=== PATIENT | female | born 1940 | race Caucasian/White ===

== ENCOUNTER 2020-03-04 10:37 | Outpatient (CLI) | payer MEDICARE, SELFPAY ==
[2020-03-04 11:45] LABS: Alanine Aminotransferase 22 U/L (4-35); Albumin Level 3.7 g/dL (3.5-5.1); Alkaline Phosphatase 104 U/L (38-126); Anion Gap 5 mmol/L (8-16); Aspartate Amino Transferase 48 U/L (14-36); Bilirubin,Total 0.5 mg/dL (0.2-1.3); Blood Urea Nitrogen 18 mg/dL (7-17); Calcium 8.5 mg/dL (8.4-10.2); Carbon Dioxide 38 mmol/L (22-30); Chloride 95 mmol/L (98-107); Estimated Glomerular Filt Rate > 60; Glucose 107 mg/dL (65-105); Potassium 3.6 mmol/L (3.4-5.0); Sodium 138 mmol/L (137-145)
== END 2020-03-04 10:38 | disposition home or self-care (01) ==
PROVIDERS: PCP Internal Medicine; Visit Provider Internal Medicine
DX: I48.91 Unspecified atrial fibrillation (principal); Z79.899 Other long term (current) drug therapy
CPT/HCPCS: 36415; 80053

== ENCOUNTER 2020-07-07 12:41 | Outpatient (CLI) | payer MEDICARE, SELFPAY ==
[2020-07-07 13:35] LABS: Add Urine Microscopic? YES; Appearance Urine Cloudy (Clear); Bilirubin Urine Negative (Negative); Blood Urine Negative (Negative); Color Urine Amber (Yellow); Glucose Urine UA Negative (Negative); Hyaline Casts Urine 50+ /lpf; Ketones Urine Negative (Negative); Leukocyte Esterase Ur Negative LEU/UL (Negative); Mucus Urine Heavy /lpf; Nitrate Urine Negative (Negative); Protein Urine 2+ mg/dL (Negative); RBC Urine 0-2 /hpf (0-2); Specific Grav Ur 1.017 (1.001-1.035); Squamous Epithelial Cell Urine Moderate /hpf (Few)
== END 2020-07-07 12:42 | disposition home or self-care (01) ==
PROVIDERS: PCP Internal Medicine; Visit Provider Nurse Practitioner
DX: R10.9 Unspecified abdominal pain (principal)
CPT/HCPCS: 81001

== ENCOUNTER 2020-07-13 12:58 | Outpatient (CLI) | payer MEDICARE, SELFPAY ==
--- NOTE | ~2020-07-13 | CT_ITS ---
EXAMINATION: CT chest wo con DATE: 07/13/2020 13:37 INDICATION: Thoracic aneurysm. TECHNIQUE: Computed tomography (CT) of the chest was performed without intravenous contrast. The dose -length product was 126.65 mGy-cm. Automated exposure control and iterative reconstruction technique were employed. COMPARISON: CT dated 02/17/2019 FINDINGS: There is global enlargement of the heart. There is atherosclerosis. Small right pleural eff usion. Small pericardial effusion. There is enlargement of the pulmonary arteries consistent with pul monary hypertension. No significant change to 4.3 cm ascending thoracic aortic aneurysm. Calcified gr anulomas right middle lobe. Calcified granuloma left lower lobe. No endobronchial lesions. Mild emphy sema. Chronic apical pleural thickening/scarring. No pneumothorax. No acute focal pneumonia. There ar e chronic compression fractures of T6 and L1. There has been interval development of age-indeterminat e compression fractures at T5, T11 and T12. There are multiple nonobstructing left renal stones. IMPRESSION: 1. Stable ascending thoracic aortic aneurysm measuring 4.3 cm. 2: Cardiomegaly with small pericardial effusion. 3: Chronic small right pleural effusion. 4: Pulmonary arterial hypertension. 5: Chronic compression fractures of T6 and L1. New fractures at T5, T11 and T12 since 02/17/2019, age indeterminate. Reviewed, dictated and finalized at location A. RIAL ASSISTANT IMPRESSION: 1. Stable ascending thoracic aortic aneurysm measuring 4.3 cm. 2: Cardiomegaly with small pericardial effusion. 3: Chronic small right pleural effusion. 4: Pulmonary arterial hypertension. 5: Chronic compression fractures of T6 and L1. New fractures at T5, T11 and T1 2 since 02/17/2019, age indeterminate.
== END 2020-07-13 12:59 | disposition home or self-care (01) ==
PROVIDERS: PCP Internal Medicine; Visit Provider Nurse Practitioner
DX: R91.8 Other nonspecific abnormal finding of lung field (principal); I71.4 Abdominal aortic aneurysm, without rupture; I51.7 Cardiomegaly
CPT/HCPCS: 71250

== ENCOUNTER 2020-09-18 11:12 | Outpatient (CLI) | payer MEDICARE, SELFPAY ==
--- NOTE | ~2020-09-18 | XR_ITS ---
XR abdomen/kub 1V DATE: 09/18/2020 11:35 INDICATION: Abdominal pain TECHNIQUE: AP projection, 2 views COMPARISON: 02/17/[address] abdomen pelvis FINDINGS: Low-lying right kidney. Numerous bilateral renal calcified calculi. There is a prominent amount of fecal material in the rectum and colon. No bowel obstruction is eviden t. Hepatomegaly is suggested. The psoas shadows are intact. Diffuse osteopenia. Status post vertebroplasty at L1 fracture. IMPRESSION: Extensive bilateral nephrolithiasis; low-lying right kidney Vertebroplasty and chronic burst fracture at T12 Diffuse osteopenia Reviewed, dictated and finalized at [facility]. Reviewed, dictated and finalized at location A. RY FINISHER
[2020-09-18 12:24] LABS: Add Urine Microscopic? YES; Appearance Urine Clear (Clear); Bilirubin Urine Negative (Negative); Blood Urine Negative (Negative); Color Urine Yellow (Yellow); Glucose Urine UA Negative (Negative); Hyaline Casts Urine 30-49 /lpf; Ketones Urine Negative (Negative); Leukocyte Esterase Ur Negative LEU/UL (Negative); Mucus Urine Rare /lpf; Nitrate Urine Negative (Negative); Protein Urine 1+ mg/dL (Negative); RBC Urine 0-2 /hpf (0-2); Specific Grav Ur 1.012 (1.001-1.035); Squamous Epithelial Cell Urine Rare /hpf (Few); WBC Urine 0-3 /hpf
== END 2020-09-18 11:13 | disposition home or self-care (01) ==
LOC: ANHIMG 11:19
PROVIDERS: PCP Internal Medicine; Visit Provider Internal Medicine
DX: R10.9 Unspecified abdominal pain (principal); N20.0 Calculus of kidney; M85.88 Other specified disorders of bone density and structure, other site
CPT/HCPCS: 74018; 81001

== ENCOUNTER 2020-09-24 16:36 | Emergency (ER) | payer MEDICARE, SELFPAY ==
--- NOTE | ~2020-09-24 | XR_ITS ---
EXAMINATION: XR hip RT 2V w AP pelvis EXAM DATE: 09/24/2020 17:02 INDICATION: Initial encounter following injury, with pain of the right hip. TECHNIQUE: Right hip frontal, 'frog leg' projections for interpretation. Frontal projection pelvis. Comparison is made to prior examination from 01/27/2009. FINDINGS: Smooth right hip femoral head contour, no radiographic evidence of avascular necrosis. Th ere is hips bilaterally primary osteoarthritis. Large amount of bowel gas obscuring the sacrum. Ther e are no acute pelvic or right hip fractures or dislocations identified. There is no subcutaneous ga s. The soft tissue is unremarkable. There are no radiopaque foreign bodies. IMPRESSION: No acute osseous findings. Reviewed, dictated and finalized at location A. ER HARDWARE WORKER IMPRESSION: No acute osseous findings.
[2020-09-24 16:39] VITALS: BP 139/83; PULSE 108; RESP 17; TEMP 36.6; O2SAT 98
--- NOTE | 2020-09-24 16:58 | ED.LOWEXIN ---
HPI - Extremity Injury (Lower) General Chief Complaint: Extremity Injury, Lower Stated Complaint: fall - right hip pain Time Seen by Provider: 09/24/20 16:36 History of Present Illness HPI Narrative: Patient is an 80-year-old female who presents ER with right hip pain. Reports she is back on a stool when it went out from under her and slipped backwards striking her on the leg and then she struck her bottom on the ground. She did not strike her head or lose consciousness. She has been ambulatory. No numbness or tingling to the leg. She does not take any blood thinners. Related Data Home Medications Medication Instructions Recorded Confirmed albuterol sulfate 90 mcg/actuation 1 puff INHALATION Q4H PRN 06/26/19 09/18/20 aerosol inhaler fluticasone furoate 100 1 inhalation INHALATION Q24H 06/26/19 09/18/20 mcg-vilanterol 25 mcg/dose inhalation powder fluticasone propionate 50 2 spray NASAL DAILY 06/26/19 09/18/20 mcg/actuation nasal spray,suspension acetaminophen 500 mg capsule 1,000 mg PO Q6H PRN cap 08/20/19 09/18/20 lutein 6 mg capsule 6 mg PO DAILY 08/20/19 09/18/20 Allergies Allergy/AdvReac Type Severity Reaction Status Date / Time No Known Allergies Allergy Verified 09/24/20 16:43 Review of Systems Musculoskeletal: Musculoskeletal: Denies back pain, Reports arthralgias, Denies joint swelling and Denies muscle cramps Neurologic: Denies syncope, Denies headache(s), Denies focal weakness and Denies numbness [facility] Past Medical History Medical History (Updated 09/24/20 @ 18:11 by Rajendra Spivey MD) Abnormal chest xray Ascending aortic aneurysm Atrial fibrillation Carotid artery disease Chronic obstructive pulmonary disease, unspecified Hx of multiple myeloma Hx of temporal arteritis Intraparenchymal hemorrhage of brain Kidney stones Memory loss Polymyalgia rheumatica 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 HEAD: Normocephalic, atraumatic. CHEST: Clear to auscultation. No respiratory distress. HEART: Regular rate and rhythm. Normal peripheral pulses. ABDOMEN: Soft, nontender, nondistended. EXTREMITIES: Exam of the lower extremities reveals full range of motion with normal strength in the hips. Patient able ambulate without issue. No visual evidence of trauma and occluding abrasion or contusions to the right lower extremity. SKIN: Warm, dry, no rash. NEURO: Alert and oriented x3. PSYCH: Normal mood and affect. Course Course Emergency Course: Patient informed of results.-Ambulatory. Discharge home. Vital Signs Vital signs: Vital Signs Temperature 97.8 F 09/24/20 16:39 Pulse Rate 108 H 09/24/20 16:39 Respiratory Rate 17 09/24/20 16:39 Blood Pressure 139/83 09/24/20 16:39 Pulse Oximetry 98 09/24/20 16:39 Temperature 97.8 F 09/24/20 16:39 Pulse Rate 108 H 09/24/20 16:39 Respiratory Rate 17 09/24/20 16:39 Blood Pressure 139/83 09/24/20 16:39 Pulse Oximetry 98 09/24/20 16:39 MDM - Extremity Injury (Lower) Imaging Data Radiologist's impression: ITS Impressions Hip/Pelvis X-Ray 09/24/20 17:02 IMPRESSION: No acute osseous findings. Discharge Plan Discharge Clinical Impression: Acute hip pain Patient Disposition: Home, Self-Care Condition: Stable Instructions: Hip Pain (ED) Addit
[2020-09-24] MEDS: ACETAMINOPHEN 325 MG TABLET 650 MG PO (17:09)
[2020-09-24 19:21] VITALS: BP 124/89; PULSE 98; RESP 18; O2SAT 99
== END 2020-09-24 19:22 | disposition home or self-care (01) ==
PROVIDERS: Emergency Provider Emergency Medicine; PCP Internal Medicine
DX: M25.551 Pain in right hip (principal); I48.91 Unspecified atrial fibrillation; I25.10 Atherosclerotic heart disease of native coronary artery without angina pectoris; J44.9 Chronic obstructive pulmonary disease, unspecified; Z87.442 Personal history of urinary calculi; M35.3 Polymyalgia rheumatica; Z85.79 Personal history of other malignant neoplasms of lymphoid, hematopoietic and related tissues; I71.4 Abdominal aortic aneurysm, without rupture
CPT/HCPCS: 73502; 99283; A9270

== ENCOUNTER 2021-01-22 09:28 | Outpatient (CLI) | payer MEDICARE, SELFPAY ==
[2021-01-22 10:26] LABS: Alanine Aminotransferase 20 U/L (4-35); Albumin Level 4.1 g/dL (3.5-5.1); Alkaline Phosphatase 166 U/L (38-126); Anion Gap 11 mmol/L (8-16); Aspartate Amino Transferase 42 U/L (14-36); Bilirubin,Total 0.9 mg/dL (0.2-1.3); Blood Urea Nitrogen 25 mg/dL (7-17); Calcium 9.1 mg/dL (8.4-10.2); Carbon Dioxide 28 mmol/L (22-30); Chloride 97 mmol/L (98-107); Estimated Glomerular Filt Rate 60; Glucose 155 mg/dL (65-105); Potassium 3.5 mmol/L (3.4-5.0); Sodium 136 mmol/L (137-145)
[2021-01-22 10:33] LABS: Prealbumin 15.1 mg/dL (17.6-36.0)
== END 2021-01-22 09:29 | disposition home or self-care (01) ==
PROVIDERS: PCP Internal Medicine; Visit Provider Internal Medicine
DX: R63.6 Underweight (principal); Z79.899 Other long term (current) drug therapy
CPT/HCPCS: 36415; 80053; 84134

== ENCOUNTER 2021-01-26 13:45 | Outpatient (CLI) | payer MEDICARE, SELFPAY ==
[2021-01-26 14:18] LABS: Add Urine Microscopic? YES; Appearance Urine Cloudy (Clear); Bacteria Urine Trace /hpf; Bilirubin Urine Negative (Negative); Blood Urine Negative (Negative); Color Urine Yellow (Yellow); Glucose Urine UA Negative (Negative); Hyaline Casts Urine 50+ /lpf; Ketones Urine Negative (Negative); Leukocyte Esterase Ur Negative LEU/UL (Negative); Mucus Urine Rare /lpf; Nitrate Urine Negative (Negative); Protein Urine 2+ mg/dL (Negative); RBC Urine 0-2 /hpf (0-2); Specific Grav Ur 1.014 (1.001-1.035); Squamous Epithelial Cell Urine Few /hpf (Few); Urobilinogen Urine Negative mg/dL (<2.0)
== END 2021-01-26 13:46 | disposition home or self-care (01) ==
PROVIDERS: PCP Internal Medicine; Visit Provider Nurse Practitioner
DX: R41.0 Disorientation, unspecified (principal)
CPT/HCPCS: 81001

== ENCOUNTER 2021-04-09 15:03 | Outpatient (CLI) | payer MEDICARE, SELFPAY ==
[2021-04-09 15:37] LABS: Anion Gap 4 mmol/L (8-16); Blood Urea Nitrogen 30 mg/dL (7-17); Calcium 9.1 mg/dL (8.4-10.2); Carbon Dioxide 32 mmol/L (22-30); Chloride 101 mmol/L (98-107); Estimated Glomerular Filt Rate > 60; Glucose 123 mg/dL (65-110); Potassium 4.5 mmol/L (3.4-5.0); Sodium 137 mmol/L (137-145)
== END 2021-04-09 15:04 | disposition home or self-care (01) ==
PROVIDERS: PCP Internal Medicine; Visit Provider Nurse Practitioner
DX: E87.6 Hypokalemia (principal)
CPT/HCPCS: 36415; 80048

== ENCOUNTER 2021-05-19 11:28 | Emergency (ER) | payer MEDICARE, SELFPAY ==
[2021-05-19 11:47] VITALS: BP 109/72; PULSE 68; RESP 15; TEMP 36.2; O2SAT 99
[2021-05-19 12:42] VITALS: BP 109/72; PULSE 96; RESP 16; TEMP 36.2; O2SAT 98
--- NOTE | 2021-05-19 12:58 | ED.EXTPRO ---
HPI - Extremity Problem General Chief complaint: Extremity Problem,Nontraumatic Stated complaint: foot swelling Time Seen by Provider: 05/19/21 12:38 Source: patient and family Mode of arrival: ambulatory Limitations: no limitations History of Present Illness HPI Narrative: Patient is an 81-year-old female complaining of bilateral lower extremity edema that started 2 days ago. states that patient stopped taking her water pill 3 days ago. Ask why she stopped it, replied she has dementia . Patient denies any chest pain, shortness of breath, abdominal distention, fever or chills. Related Data Home Medications Medication Instructions Recorded Confirmed acetaminophen 500 mg capsule 1,000 mg PO Q6H PRN cap 08/20/19 01/26/21 lutein 6 mg capsule 6 mg PO DAILY 08/20/19 01/26/21 Allergies Allergy/AdvReac Type Severity Reaction Status Date / Time No Known Allergies Allergy Verified 05/19/21 12:44 Review of Systems Review of Systems: All systems reviewed & are unremarkable except as noted in HPI and below Constitutional: Constitutional: Denies body ache(s), Denies chills, Denies excessive sweating, Denies fatigue, Denies fever(s), Denies headache(s), Denies lethargy, Denies malaise, Denies weakness and Denies weight loss Eyes: Eyes: Denies blurry vision, Denies change in vision and Denies loss of vision ENT: Denies dizziness, Denies ear discharge, Denies headache(s), Denies lip swelling, Denies epistaxis, Denies nasal congestion, Denies neck pain, Denies throat swelling and Denies tongue swelling Cardiovascular: Cardiovascular: Denies chest pain, Denies chest pain at rest, Denies chest pain with activity, Denies diaphoresis, Denies rapid heart rate, Denies irregular heart rhythm, Denies lightheadedness, Denies palpitations, Denies dyspnea and Denies dyspnea on exertion Respiratory: Respiratory: Denies chest congestion, Denies cough, Denies hemoptysis, Denies dyspnea and Denies dyspnea on exertion Gastrointestinal: Gastrointestinal: Denies abdominal pain, Denies melena, Denies hematochezia, Denies diarrhea, Denies nausea, Denies vomiting and Denies hematemesis Musculoskeletal: Musculoskeletal: Denies abnormal gait, Denies deformity, Denies joint swelling, Denies limited range of motion, Denies neck pain and Denies numbness Neurologic: Denies Abnormal speech present, Denies abnormal gait, Denies confusion, Denies dizziness, Denies headache(s), Denies focal weakness, Denies loss of vision, Denies numbness, Denies Other visual disturbances, Denies Sensory deficit (Neuro) and Denies weakness Psychiatric: Psychiatric: Denies confusion, Denies depression, Denies auditory hallucinations, Denies homicidal ideation and Denies suicidal ideation Endocrine: Endocrine: Denies cold intolerance, Denies excessive sweating, Denies fatigue, Denies heat intolerance and Denies palpitations Hematologic/Lymphatic: Hematologic/Lymphatic: Denies easy bleeding and Denies easy bruising Allergic/Immunologic: Allergic/Immunologic: Denies lip swelling, Denies throat swelling and Denies tongue swelling PMFSH Past Medical History Medical History Abnormal chest xray Ascending aortic aneurysm Atrial fibrillation Carotid artery disease Chronic obstructive pulmonary disease, unspecified Hx of multiple myeloma Hx of temporal arteritis Intraparenchymal hemorrhage of brain Kidney stones Memory loss Polymyalgia rheumatica 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
[2021-05-19 13:09] LABS: Basophils Percent Auto 0.4 % (0.2-1.2); Eosinophils Percent Auto 0.8 % (0-4.4); Hematocrit 35.7 % (37.0-47.0); Hemoglobin 11.5 g/dL (12.0-15.0); Immature Granulocyte Absolute 0.01 K/mm3 (0.00-0.031); Immature Granulocyte Percent A 0.2 % (0-0.5); Lymphocytes Absolute Auto 0.69 K/mm3 (0.9-3.2); Lymphocytes Percent Auto 13.5 % (18.3-44.2); Mean Corpuscular HGB Conc 32.2 g/dl (32-36); Mean Corpuscular Hemoglobin 32.2 pg (26-34); Mean Platelet Volume 9.4 fl (7.4-10.4); Monocytes Absolute Auto 0.5 K/mm3 (0.1-0.6); Monocytes Percent Auto 8.8 % (2.6-8.5); Neutrophils Absolute Auto 3.9 K/mm3 (1.3-6.7); Neutrophils Percent Auto 76.3 % (45.5-73.1); Platelet Count Result 208 k/mm3 (150-375); Red Blood Count 3.57 M/mm3 (4.2-5.4); Red Cell Distribution Width 14.7 % (11.5-14.5); White Blood Count 5.1 K/mm3 (4.5-10.0)
[2021-05-19 13:19] LABS: Anion Gap 3 mmol/L (8-16); Blood Urea Nitrogen 19 mg/dL (7-17); Calcium 8.8 mg/dL (8.4-10.2); Carbon Dioxide 37 mmol/L (22-30); Chloride 99 mmol/L (98-107); Estimated CRCL calculation 31 ml/min; Estimated Glomerular Filt Rate > 60; Glucose 137 mg/dL (65-110); Sodium 139 mmol/L (137-145)
[2021-05-19 13:28] LABS: NT Pro B Type Natriuretic Pept 1730 pg/mL (5-100)
[2021-05-19] MEDS: FUROSEMIDE INJ 40 MG/4 ML VIAL 20 MG IV PUSH (13:31)
[2021-05-19 14:55] VITALS: BP 113/85; PULSE 92; RESP 18; O2SAT 98
== END 2021-05-19 14:56 | disposition home or self-care (01) ==
PROVIDERS: Emergency Provider Emergency Medicine; PCP Internal Medicine
DX: R60.0 Localized edema (principal); I48.91 Unspecified atrial fibrillation; I25.10 Atherosclerotic heart disease of native coronary artery without angina pectoris; J44.9 Chronic obstructive pulmonary disease, unspecified; Z85.79 Personal history of other malignant neoplasms of lymphoid, hematopoietic and related tissues; Z87.442 Personal history of urinary calculi; M35.3 Polymyalgia rheumatica; Z87.891 Personal history of nicotine dependence
CPT/HCPCS: 36415; 80048; 83880; 85025; 96374; 99284; J1940

== ENCOUNTER 2021-06-03 15:32 | Outpatient (CLI) | payer MEDICARE, SELFPAY ==
[2021-06-03 15:59] LABS: Anion Gap 6 mmol/L (8-16); Blood Urea Nitrogen 22 mg/dL (7-17); Calcium 8.9 mg/dL (8.4-10.2); Carbon Dioxide 37 mmol/L (22-30); Chloride 97 mmol/L (98-107); Estimated Glomerular Filt Rate 53; Glucose 95 mg/dL (65-110); Potassium 3.2 mmol/L (3.4-5.0); Sodium 140 mmol/L (137-145)
== END 2021-06-03 15:33 | disposition home or self-care (01) ==
PROVIDERS: PCP Internal Medicine; Visit Provider Nurse Practitioner
DX: E87.6 Hypokalemia (principal)
CPT/HCPCS: 36415; 80048

== ENCOUNTER 2021-06-04 16:21 | Outpatient (CLI) | payer MEDICARE, SELFPAY ==
--- NOTE | ~2021-06-04 | XR_ITS ---
EXAMINATION: XR lumbar spine 2-3V EXAM DATE: 06/04/2021 16:44 INDICATION: M48.50XA - Collapsed vertebra, not elsewhere classified... Fell 2 days ago, feels bump low back, pain. TECHNIQUE: Lumber spine frontal, lateral, lateral L5-S1 projections for interpretation. Comparison is made to prior examination from 2014. FINDINGS: Patient has had treated compression fractures at T10, L1, L5. There is moderate anterior w edging of the T11, mild to moderate at T12. Mild to moderate compression fracture of T9 seen on the f rontal projection. These are age indeterminate. Sacrum poorly evaluated due to large amount of bowel gas, stool. Probable gastrostomy tube. Mild to moderate lumbar facet arthropathy. There is mild lumba r disc disease. The vertebral bodies are aligned in the AP dimension. IMPRESSION: 1. Age-indeterminate compression fractures T9, T11, T12. 2. Treated compression fractures T10, L1, L5. 3. Mild to moderate lumbar spondylosis. Reviewed, dictated and finalized at location A. TECH
== END 2021-06-04 16:22 | disposition home or self-care (01) ==
LOC: ANHIMG 16:26
PROVIDERS: PCP Internal Medicine; Visit Provider Internal Medicine
DX: S22.070A Wedge compression fracture of T9-T10 vertebra, initial encounter for closed fracture (principal); S22.080A Wedge compression fracture of T11-T12 vertebra, initial encounter for closed fracture; X58.XXXA Exposure to other specified factors, initial encounter; M47.896 Other spondylosis, lumbar region
CPT/HCPCS: 72100